=== PATIENT | female | born 1970 | race Two or more races ===

== ENCOUNTER 2018-04-01 12:00 | Emergency (ER) | payer OTHER ==
[~2018-04-01] VITALS: Ht 162.6 cm; Wt 59.0 kg
[2018-04-01] MEDS ORDERED: SINGULAIR10 MG PO (12:08)
== END 2018-04-01 18:22 | disposition home or self-care (01) ==
LOC: ER 12:00
DX: R10.13 Epigastric pain (principal)